=== PATIENT | male | born 1975 | race Two or more races ===

== ENCOUNTER 2019-12-08 12:50 | Inpatient (IN) | payer MEDICAID, OTHER ==
[~2019-12-08] VITALS: Ht 160 cm; Wt 103.5 kg
[2019-12-08] MEDS ORDERED: ACETAMINOPHEN 500 MG TAB PO ONE (13:30)
[2019-12-08] MEDS ORDERED: cefTRIAXone 1GM/50ML D5W 50 ML IV ONE (13:30)
[2019-12-08] MEDS ORDERED: methylPREDNISolone SOD SUCC 125 MG/2 ML VL IV ONE (13:30)
[2019-12-08] MEDS ORDERED: ASCORBIC ACID 500 MG TAB PO ONE (13:30)
[2019-12-08] MEDS ORDERED: AZITHROMYCIN 500MG/ 250ML 250 ML IV ONE (13:30)
[2019-12-08] MEDS ORDERED: ZINC SULFATE 220mg CAP or TAB PO ONE (13:30)
[2019-12-08 14:22] LABS: Basophils # (auto) 0 10 ^3/uL (0-0.2); Eosinophils # (auto) 0 10 ^3/uL (0-0.8); Monocytes # (auto) 0.2 10 ^3/uL (0-1.3); Neutrophils # (auto) 3.8 10 ^3/uL (1.6-8.6); Nucleated Red Blood Cells % 0.4 %
[2019-12-08 14:24] LABS: Basophils % (auto) 0.1 % (0.0-2.0); Hematocrit 37.1 % (41.0-53.0); Hemoglobin 11.6 g/dL (13.5-17.5); Mean Corpuscular Hemoglobin 22.6 pg (28.0-32.0); Mean Corpuscular Hgb Conc. 31.2 g/dL (32.0-36.0); Mean Corpuscular Volume 72.4 fL (80.0-100.0); Monocytes % (auto) 3.2 % (0.0-12.0); Neutrophils % (auto) 76.7 % (37.0-80.0); Platelet Count (auto) 162 10^3/uL (140-450); Red Blood Cells 5.12 10^6/uL (4.5-5.90); Red Cell Distribution Width 18.6 % (11.8-14.3); White Blood Cell 4.9 10^3/uL (4.4-10.8)
[2019-12-08 14:54] LABS: Albumin 2.6 g/dL (3.4-5.0); Calcium 7.5 mg/dL (8.5-10.1); Potassium 4.5 mmol/L (3.5-5.1)
[2019-12-08 15:02] LABS: BUN/Creatinine Ratio 14.4; Bilirubin, Total 0.3 mg/dL (0.2-1.0); CRP High Sensitivity 8.68 mg/dL (< 0.3); Total Protein 6.6 g/dL (6.4-8.2)
[2019-12-08] MEDS ORDERED: IOHEXOL 350 MG/ML 100ML IJ ONE (15:09)
[2019-12-08] MEDS ORDERED: ENOXAPARIN SOD 100 MG/1 ML SYRINGE SC ONE (15:15)
[2019-12-08] MEDS ORDERED: MORPHINE SULF INJ 2 MG/ML SYRINGE 1ML IV PRN ×2 (15:30→16:15)
[2019-12-08] MEDS ORDERED: NITROGLYCERIN 0.4 MG SL TAB SL PRN (15:30)
[2019-12-08] MEDS ORDERED: diphenhdrAMINE HCL 50 MG/1 ML VL ONE (15:43)
[2019-12-08] MEDS ORDERED: IBUPROFEN 600 MG TAB PO ONE (15:45)
[2019-12-08] MEDS ORDERED: PROMETHAZINE HCL 25 MG/ML 1ML IV PRN (16:15)
[2019-12-08] MEDS ORDERED: ACETAMINOPHEN 500 MG TAB PO PRN (16:15)
[2019-12-08] MEDS ORDERED: TEMAZEPAM 15 MG CAP PO PRN (16:15)
[2019-12-08] MEDS ORDERED: SODIUM CHLORIDE 0.9% 1,000 ML IV SCH (16:15)
[2019-12-08] MEDS ORDERED: traMADol HCL 50 MG TAB PO PRN (16:15)
[2019-12-08] MEDS ORDERED: DexAMETHasone INJECTION 10 MG in D5W 5% 50 ML IV ONE (16:15)
[2019-12-08] MEDS ORDERED: diphenhdrAMINE HCL 50 MG/1 ML VL IV ONE (16:15)
[2019-12-08 20:20] VITALS: BP 127/68
[2019-12-08 20:57] VITALS: BP 136/85
[2019-12-08] MEDS: ALBUTEROL SULF HFA 90MCG INH 200DOSE IN SCH (21:56)
[2019-12-08] MEDS: BUDESONIDE (INHALATION) 180 MCG IH IN SCH (21:56)
[2019-12-08 22:00] VITALS: BP 127/68
[2019-12-09] MEDS: CLINDAMYCIN 600MG IV 50 ML IV SCH ×3 (00:05→13:33)
[2019-12-09 05:00] VITALS: BP 145/76
[2019-12-09] MEDS: BUDESONIDE (INHALATION) 180 MCG IH IN SCH ×2 (07:02→22:11)
[2019-12-09] MEDS: ALBUTEROL SULF HFA 90MCG INH 200DOSE IN SCH ×3 (07:02→22:11)
[2019-12-09 08:00] VITALS: BP 106/69
[2019-12-09 09:00] VITALS: BP 106/69
[2019-12-09] MEDS: ASCORBIC ACID 1,000 MG TAB PO SCH (10:07)
[2019-12-09] MEDS: DexAMETHasone SOD PHOS 10MG/1ML VIAL INJ IV SCH (10:07)
[2019-12-09] MEDS: ZINC SULFATE 220mg CAP or TAB PO SCH (10:07)
[2019-12-09] MEDS: levoFLOXacin 500MG 100 ML IV SCH (10:07)
[2019-12-09] MEDS: CHOLECALCIFEROL (VITD3) 2,000 UNIT CAP PO SCH (10:08)
[2019-12-09] MEDS: ENOXAPARIN SOD 40 MG/0.4 ML SYRINGE SC SCH (10:08)
[2019-12-09 11:36] LABS: Basophils # (auto) 0 10 ^3/uL (0-0.2); Eosinophils # (auto) 0 10 ^3/uL (0-0.8); Hemoglobin 12.4 g/dL (13.5-17.5); Lymphocytes # (auto) 0.5 10 ^3/uL (0.4-5.4)
[2019-12-09 11:38] LABS: Basophils % (auto) 0.1 % (0.0-2.0); Hematocrit 40.5 % (41.0-53.0); Lymphocytes % (auto) 5.8 % (10.0-50.0); Mean Corpuscular Hemoglobin 22.7 pg (28.0-32.0); Mean Corpuscular Hgb Conc. 30.5 g/dL (32.0-36.0); Mean Corpuscular Volume 74.3 fL (80.0-100.0); Monocytes # (auto) 0.2 10 ^3/uL (0-1.3); Monocytes % (auto) 1.9 % (0.0-12.0); Neutrophils # (auto) 7.6 10 ^3/uL (1.6-8.6); Neutrophils % (auto) 92.2 % (37.0-80.0); Nucleated Red Blood Cells % 0.3 %; Platelet Count (auto) 176 10^3/uL (140-450); Red Blood Cells 5.45 10^6/uL (4.5-5.90); Red Cell Distribution Width 19.6 % (11.8-14.3); White Blood Cell 8.2 10^3/uL (4.4-10.8)
[2019-12-09 11:53] LABS: Albumin 2.5 g/dL (3.4-5.0); Calcium 7.7 mg/dL (8.5-10.1); Potassium 5.2 mmol/L (3.5-5.1)
[2019-12-09 11:58] LABS: BUN/Creatinine Ratio 22.6; Bilirubin, Total 0.3 mg/dL (0.2-1.0); Total Protein 6.9 g/dL (6.4-8.2)
[2019-12-09 13:00] VITALS: BP 107/80
[2019-12-09 17:00] VITALS: BP 128/80
[2019-12-09] MEDS ORDERED: REMDESIVIR 200 MG in NS 210ml LOADING DOSE ADULT IV ONE ×4 (17:00)
[2019-12-09 22:00] VITALS: BP 119/68
[2019-12-10] VITALS (7 sets, daily range): BP systolic 121–134; BP diastolic 71–84
[2019-12-10] MEDS: ALBUTEROL SULF HFA 90MCG INH 200DOSE IN SCH ×3 (07:32→22:27)
[2019-12-10] MEDS: BUDESONIDE (INHALATION) 180 MCG IH IN SCH ×2 (07:32→22:27)
[2019-12-10 08:54] LABS: Basophils # (auto) 0 10 ^3/uL (0-0.2); Basophils % (auto) 0.1 % (0.0-2.0); Eosinophils # (auto) 0 10 ^3/uL (0-0.8); Hemoglobin 11.2 g/dL (13.5-17.5)
[2019-12-10 08:56] LABS: Hematocrit 35.5 % (41.0-53.0); Lymphocytes # (auto) 0.5 10 ^3/uL (0.4-5.4); Lymphocytes % (auto) 6.5 % (10.0-50.0); Mean Corpuscular Hemoglobin 22.9 pg (28.0-32.0); Mean Corpuscular Hgb Conc. 31.4 g/dL (32.0-36.0); Mean Corpuscular Volume 72.8 fL (80.0-100.0); Monocytes # (auto) 0.1 10 ^3/uL (0-1.3); Monocytes % (auto) 1.7 % (0.0-12.0); Neutrophils # (auto) 7.7 10 ^3/uL (1.6-8.6); Neutrophils % (auto) 91.7 % (37.0-80.0); Nucleated Red Blood Cells % 0.3 %; Platelet Count (auto) 154 10^3/uL (140-450); Red Blood Cells 4.87 10^6/uL (4.5-5.90); Red Cell Distribution Width 18.9 % (11.8-14.3); White Blood Cell 8.4 10^3/uL (4.4-10.8)
[2019-12-10 09:10] LABS: BUN/Creatinine Ratio 25.6; Calcium 7.8 mg/dL (8.5-10.1); Potassium 4.6 mmol/L (3.5-5.1)
[2019-12-10] MEDS: DexAMETHasone SOD PHOS 10MG/1ML VIAL INJ IV SCH (10:41)
[2019-12-10] MEDS: CHOLECALCIFEROL (VITD3) 2,000 UNIT CAP PO SCH (10:42)
[2019-12-10] MEDS: ZINC SULFATE 220mg CAP or TAB PO SCH (10:42)
[2019-12-10] MEDS: levoFLOXacin 500MG 100 ML IV SCH (10:42)
[2019-12-10] MEDS: ASCORBIC ACID 1,000 MG TAB PO SCH (10:42)
[2019-12-10] MEDS: ENOXAPARIN SOD 40 MG/0.4 ML SYRINGE SC SCH (10:42)
[2019-12-10] MEDS ORDERED: REMDESIVIR 100mg in NS 230ml DAILYx4DAYS (NO VENT) IV SCH (17:00)
[2019-12-10] MEDS: REMDESIVIR 100mg in NS 230ml DAILYx4DAYS (NO VENT) IV SCH (17:18)
[2019-12-10] MEDS: ENOXAPARIN SOD 100 MG/1 ML SYRINGE SC SCH (21:06)
[2019-12-11 05:00] VITALS: BP 120/63
[2019-12-11] MEDS: BUDESONIDE (INHALATION) 180 MCG IH IN SCH (06:51)
[2019-12-11] MEDS: ALBUTEROL SULF HFA 90MCG INH 200DOSE IN SCH ×2 (06:51→14:24)
[2019-12-11 07:40] LABS: Potassium 4.6 mmol/L (3.5-5.1)
[2019-12-11 08:00] VITALS: BP 132/84
[2019-12-11 08:02] LABS: Albumin 2.5 g/dL (3.4-5.0); BUN/Creatinine Ratio 28.1; Bilirubin, Total 0.4 mg/dL (0.2-1.0); Calcium 7.8 mg/dL (8.5-10.1); Total Protein 6.5 g/dL (6.4-8.2)
[2019-12-11] MEDS: ENOXAPARIN SOD 100 MG/1 ML SYRINGE SC SCH ×2 (10:08→21:32)
[2019-12-11] MEDS: DexAMETHasone SOD PHOS 10MG/1ML VIAL INJ IV SCH (10:08)
[2019-12-11] MEDS: ZINC SULFATE 220mg CAP or TAB PO SCH (10:08)
[2019-12-11] MEDS: ASCORBIC ACID 1,000 MG TAB PO SCH (10:08)
[2019-12-11] MEDS: CHOLECALCIFEROL (VITD3) 2,000 UNIT CAP PO SCH (10:08)
[2019-12-11] MEDS: levoFLOXacin 500MG 100 ML IV SCH (10:08)
[2019-12-11 12:00] VITALS: BP 126/84
[2019-12-11 17:00] VITALS: BP 122/76
[2019-12-11] MEDS: REMDESIVIR 100mg in NS 230ml DAILYx4DAYS (NO VENT) IV SCH (17:20)
[2019-12-11 21:34] VITALS: BP 122/76
[2019-12-11 21:35] VITALS: BP 130/87
[2019-12-12 05:03] VITALS: BP 138/90
[2019-12-12] MEDS: ALBUTEROL SULF HFA 90MCG INH 200DOSE IN SCH ×3 (06:02→22:40)
[2019-12-12 08:00] VITALS: BP 130/74
[2019-12-12 08:11] LABS: Basophils # (auto) 0 10 ^3/uL (0-0.2); Basophils % (auto) 0.1 % (0.0-2.0); Eosinophils # (auto) 0 10 ^3/uL (0-0.8); Hemoglobin 11.3 g/dL (13.5-17.5); Lymphocytes # (auto) 0.6 10 ^3/uL (0.4-5.4)
[2019-12-12 08:14] LABS: Lymphocytes % (auto) 9.6 % (10.0-50.0); Mean Corpuscular Hemoglobin 22.3 pg (28.0-32.0); Mean Corpuscular Hgb Conc. 30.5 g/dL (32.0-36.0); Mean Corpuscular Volume 73.2 fL (80.0-100.0); Monocytes # (auto) 0.3 10 ^3/uL (0-1.3); Monocytes % (auto) 3.8 % (0.0-12.0); Neutrophils # (auto) 5.8 10 ^3/uL (1.6-8.6); Neutrophils % (auto) 86.5 % (37.0-80.0); Nucleated Red Blood Cells % 0.3 %; Platelet Count (auto) 190 10^3/uL (140-450); Red Blood Cells 5.05 10^6/uL (4.5-5.90); Red Cell Distribution Width 18.6 % (11.8-14.3); White Blood Cell 6.7 10^3/uL (4.4-10.8)
[2019-12-12 08:39] LABS: Potassium 4.4 mmol/L (3.5-5.1)
[2019-12-12 08:48] LABS: Albumin 2.4 g/dL (3.4-5.0); BUN/Creatinine Ratio 32.2; Bilirubin, Total 0.6 mg/dL (0.2-1.0); Total Protein 6.2 g/dL (6.4-8.2)
[2019-12-12] MEDS: BUDESONIDE (INHALATION) 180 MCG IH IN SCH ×2 (09:05→22:40)
[2019-12-12] MEDS: levoFLOXacin 500MG 100 ML IV SCH (10:05)
[2019-12-12] MEDS: ZINC SULFATE 220mg CAP or TAB PO SCH (10:05)
[2019-12-12] MEDS: ASCORBIC ACID 1,000 MG TAB PO SCH (10:05)
[2019-12-12] MEDS: DexAMETHasone SOD PHOS 10MG/1ML VIAL INJ IV SCH (10:05)
[2019-12-12] MEDS: ENOXAPARIN SOD 100 MG/1 ML SYRINGE SC SCH ×2 (10:06→22:02)
[2019-12-12] MEDS: CHOLECALCIFEROL (VITD3) 2,000 UNIT CAP PO SCH (10:06)
[2019-12-12 12:00] VITALS: BP 138/90
[2019-12-12 16:00] VITALS: BP 138/85
[2019-12-12] MEDS: REMDESIVIR 100mg in NS 230ml DAILYx4DAYS (NO VENT) IV SCH (17:00)
[2019-12-12 22:00] VITALS: BP 132/62
[2019-12-13] VITALS (9 sets, daily range): BP systolic 124–146; BP diastolic 73–95
[2019-12-13] MEDS: ALBUTEROL SULF HFA 90MCG INH 200DOSE IN SCH ×3 (06:52→21:16)
[2019-12-13] MEDS: BUDESONIDE (INHALATION) 180 MCG IH IN SCH ×2 (06:52→21:16)
[2019-12-13 07:53] LABS: Basophils # (auto) 0 10 ^3/uL (0-0.2); Eosinophils # (auto) 0 10 ^3/uL (0-0.8); Eosinophils % (auto) 0.2 % (0.0-7.0); Hemoglobin 11.7 g/dL (13.5-17.5); Lymphocytes # (auto) 0.8 10 ^3/uL (0.4-5.4); Monocytes # (auto) 0.4 10 ^3/uL (0-1.3); Monocytes % (auto) 5.7 % (0.0-12.0); Neutrophils # (auto) 5.7 10 ^3/uL (1.6-8.6); Neutrophils % (auto) 82.4 % (37.0-80.0); Nucleated Red Blood Cells % 0.1 %; Red Cell Distribution Width 18.7 % (11.8-14.3); White Blood Cell 6.9 10^3/uL (4.4-10.8)
[2019-12-13 07:55] LABS: Lymphocytes % (auto) 11.7 % (10.0-50.0); Mean Corpuscular Hemoglobin 22.2 pg (28.0-32.0); Mean Corpuscular Hgb Conc. 30.7 g/dL (32.0-36.0); Mean Corpuscular Volume 72.5 fL (80.0-100.0); Platelet Count (auto) 233 10^3/uL (140-450); Red Blood Cells 5.25 10^6/uL (4.5-5.90)
[2019-12-13 08:12] LABS: Calcium 8.3 mg/dL (8.5-10.1); Potassium 4.5 mmol/L (3.5-5.1)
[2019-12-13 08:13] LABS: BUN/Creatinine Ratio 28.2
[2019-12-13] MEDS: ZINC SULFATE 220mg CAP or TAB PO SCH (09:06)
[2019-12-13] MEDS: levoFLOXacin 500MG 100 ML IV SCH (09:06)
[2019-12-13] MEDS: DexAMETHasone SOD PHOS 10MG/1ML VIAL INJ IV SCH (09:06)
[2019-12-13] MEDS: ENOXAPARIN SOD 100 MG/1 ML SYRINGE SC SCH (09:07)
[2019-12-13] MEDS: CHOLECALCIFEROL (VITD3) 2,000 UNIT CAP PO SCH (09:07)
[2019-12-13] MEDS: ASCORBIC ACID 1,000 MG TAB PO SCH (09:07)
[2019-12-13] MEDS: REMDESIVIR 100mg in NS 230ml DAILYx4DAYS (NO VENT) IV SCH (17:16)
[2019-12-14 05:00] VITALS: BP 137/68
[2019-12-14 06:09] LABS: Basophils # (auto) 0 10 ^3/uL (0-0.2); Basophils % (auto) 0.1 % (0.0-2.0); Eosinophils # (auto) 0.1 10 ^3/uL (0-0.8); Eosinophils % (auto) 1.1 % (0.0-7.0); Monocytes # (auto) 0.5 10 ^3/uL (0-1.3); Monocytes % (auto) 6.5 % (0.0-12.0); Neutrophils # (auto) 5.4 10 ^3/uL (1.6-8.6); White Blood Cell 7.1 10^3/uL (4.4-10.8)
[2019-12-14 06:11] LABS: Hematocrit 40.2 % (41.0-53.0); Hemoglobin 12.4 g/dL (13.5-17.5); Lymphocytes # (auto) 1.1 10 ^3/uL (0.4-5.4); Lymphocytes % (auto) 15.7 % (10.0-50.0); Mean Corpuscular Hemoglobin 22.4 pg (28.0-32.0); Mean Corpuscular Hgb Conc. 30.7 g/dL (32.0-36.0); Neutrophils % (auto) 76.6 % (37.0-80.0); Nucleated Red Blood Cells % 0.1 %; Platelet Count (auto) 271 10^3/uL (140-450); Red Blood Cells 5.51 10^6/uL (4.5-5.90); Red Cell Distribution Width 18.9 % (11.8-14.3)
[2019-12-14 06:26] LABS: BUN/Creatinine Ratio 21.2; Calcium 7.9 mg/dL (8.5-10.1); Potassium 4.7 mmol/L (3.5-5.1)
[2019-12-14] MEDS: BUDESONIDE (INHALATION) 180 MCG IH IN SCH ×2 (06:53→21:17)
[2019-12-14] MEDS: ALBUTEROL SULF HFA 90MCG INH 200DOSE IN SCH ×3 (06:53→21:16)
[2019-12-14 08:33] VITALS: BP 133/86
[2019-12-14] MEDS: ZINC SULFATE 220mg CAP or TAB PO SCH (10:33)
[2019-12-14] MEDS: levoFLOXacin 500MG 100 ML IV SCH (10:33)
[2019-12-14] MEDS: DexAMETHasone SOD PHOS 10MG/1ML VIAL INJ IV SCH (10:33)
[2019-12-14] MEDS: CHOLECALCIFEROL (VITD3) 2,000 UNIT CAP PO SCH (10:34)
[2019-12-14] MEDS: ASCORBIC ACID 1,000 MG TAB PO SCH (10:34)
[2019-12-14] MEDS: ENOXAPARIN SOD 40 MG/0.4 ML SYRINGE SC SCH (10:34)
[2019-12-14 11:58] VITALS: BP 135/82
[2019-12-14 17:00] VITALS: BP 140/90
[2019-12-14 22:00] VITALS: BP 132/73
[2019-12-15 05:00] VITALS: BP 119/60
[2019-12-15] MEDS: BUDESONIDE (INHALATION) 180 MCG IH IN SCH ×2 (06:18→21:15)
[2019-12-15] MEDS: ALBUTEROL SULF HFA 90MCG INH 200DOSE IN SCH ×3 (06:18→21:15)
[2019-12-15 07:43] LABS: Basophils # (auto) 0 10 ^3/uL (0-0.2); Eosinophils # (auto) 0.1 10 ^3/uL (0-0.8); Neutrophils # (auto) 6.8 10 ^3/uL (1.6-8.6)
[2019-12-15 07:44] LABS: Basophils % (auto) 0.1 % (0.0-2.0); Eosinophils % (auto) 0.9 % (0.0-7.0); Hematocrit 41.8 % (41.0-53.0); Lymphocytes # (auto) 1.3 10 ^3/uL (0.4-5.4); Lymphocytes % (auto) 14.9 % (10.0-50.0); Mean Corpuscular Hemoglobin 22.7 pg (28.0-32.0); Mean Corpuscular Hgb Conc. 31.1 g/dL (32.0-36.0); Mean Corpuscular Volume 73.1 fL (80.0-100.0); Monocytes # (auto) 0.5 10 ^3/uL (0-1.3); Monocytes % (auto) 5.7 % (0.0-12.0); Neutrophils % (auto) 78.4 % (37.0-80.0); Nucleated Red Blood Cells % 0.1 %; Platelet Count (auto) 265 10^3/uL (140-450); Red Blood Cells 5.71 10^6/uL (4.5-5.90); Red Cell Distribution Width 19.1 % (11.8-14.3); White Blood Cell 8.7 10^3/uL (4.4-10.8)
[2019-12-15 08:00] VITALS: BP 130/79
[2019-12-15 08:02] LABS: Potassium 4.3 mmol/L (3.5-5.1)
[2019-12-15 08:06] LABS: BUN/Creatinine Ratio 24.4; Calcium 8.2 mg/dL (8.5-10.1)
[2019-12-15] MEDS: ZINC SULFATE 220mg CAP or TAB PO SCH (10:18)
[2019-12-15] MEDS: ENOXAPARIN SOD 40 MG/0.4 ML SYRINGE SC SCH (10:18)
[2019-12-15] MEDS: CHOLECALCIFEROL (VITD3) 2,000 UNIT CAP PO SCH (10:18)
[2019-12-15] MEDS: ASCORBIC ACID 1,000 MG TAB PO SCH (10:18)
[2019-12-15] MEDS: levoFLOXacin 500MG 100 ML IV SCH (10:18)
[2019-12-15] MEDS: DexAMETHasone SOD PHOS 10MG/1ML VIAL INJ IV SCH (10:19)
[2019-12-15 12:00] VITALS: BP 138/83
[2019-12-15 15:55] VITALS: BP 138/83
[2019-12-15 16:30] VITALS: BP 144/89
[2019-12-15 21:41] VITALS: BP 120/71
[2019-12-16 05:00] VITALS: BP 109/71
[2019-12-16] MEDS: ALBUTEROL SULF HFA 90MCG INH 200DOSE IN SCH ×2 (06:25→14:08)
[2019-12-16] MEDS: BUDESONIDE (INHALATION) 180 MCG IH IN SCH (06:25)
[2019-12-16 07:43] LABS: Basophils # (auto) 0 10 ^3/uL (0-0.2); Monocytes # (auto) 0.5 10 ^3/uL (0-1.3)
[2019-12-16 07:45] LABS: Basophils % (auto) 0.1 % (0.0-2.0); Eosinophils # (auto) 0 10 ^3/uL (0-0.8); Eosinophils % (auto) 0.5 % (0.0-7.0); Hematocrit 39.5 % (41.0-53.0); Hemoglobin 12.7 g/dL (13.5-17.5); Lymphocytes # (auto) 1.6 10 ^3/uL (0.4-5.4); Lymphocytes % (auto) 17.4 % (10.0-50.0); Mean Corpuscular Hemoglobin 23.3 pg (28.0-32.0); Mean Corpuscular Hgb Conc. 32.1 g/dL (32.0-36.0); Mean Corpuscular Volume 72.5 fL (80.0-100.0); Platelet Count (auto) 288 10^3/uL (140-450); Red Blood Cells 5.45 10^6/uL (4.5-5.90); Red Cell Distribution Width 18.7 % (11.8-14.3); White Blood Cell 9.2 10^3/uL (4.4-10.8)
[2019-12-16 07:49] LABS: BUN/Creatinine Ratio 25.6; Calcium 8.4 mg/dL (8.5-10.1); Potassium 4.4 mmol/L (3.5-5.1)
[2019-12-16] MEDS: ZINC SULFATE 220mg CAP or TAB PO SCH (09:47)
[2019-12-16] MEDS: DexAMETHasone SOD PHOS 10MG/1ML VIAL INJ IV SCH (09:47)
[2019-12-16] MEDS: CHOLECALCIFEROL (VITD3) 2,000 UNIT CAP PO SCH (09:48)
[2019-12-16] MEDS: ASCORBIC ACID 1,000 MG TAB PO SCH (09:48)
[2019-12-16] MEDS: levoFLOXacin 500MG 100 ML IV SCH (09:48)
[2019-12-16] MEDS: ENOXAPARIN SOD 40 MG/0.4 ML SYRINGE SC SCH (09:48)
[2019-12-16 12:00] VITALS: BP 117/83
== END 2019-12-16 16:20 | disposition home or self-care (01) | DRG 137 ==
LOC: ER 12:50 → TELE-EAST 12:51
PROVIDERS: ADMIT Internal Medicine; ATTEND Internal Medicine Pulmonary Disease
PROC: XW033E5 Introduction of Remdesivir Anti-infective into Peripheral Vein, Percutaneous Approach, New Technology Group 5 (ICD-10-PCS; principal; 2019-12-09)
PROC: XW033E5 Introduction of Remdesivir Anti-infective into Peripheral Vein, Percutaneous Approach, New Technology Group 5 (ICD-10-PCS; 2019-12-13)
PROC: 5A09357 Assistance with Respiratory Ventilation, Less than 24 Consecutive Hours, Continuous Positive Airway Pressure (ICD-10-PCS; 2019-12-13)
PROC: 5A09357 Assistance with Respiratory Ventilation, Less than 24 Consecutive Hours, Continuous Positive Airway Pressure (ICD-10-PCS; 2019-12-14)
PROC: 5A09357 Assistance with Respiratory Ventilation, Less than 24 Consecutive Hours, Continuous Positive Airway Pressure (ICD-10-PCS; 2019-12-15)
DX: U07.1 COVID-19 (principal); J12.89 Other viral pneumonia; J96.01 Acute respiratory failure with hypoxia; E66.01 Morbid (severe) obesity due to excess calories; K76.0 Fatty (change of) liver, not elsewhere classified; G47.33 Obstructive sleep apnea (adult) (pediatric); Z91.041 Radiographic dye allergy status; Z79.899 Other long term (current) drug therapy; Z83.3 Family history of diabetes mellitus; Z82.49 Family history of ischemic heart disease and other diseases of the circulatory system; Z68.41 Body mass index [BMI] 40.0-44.9, adult; J84.89 Other specified interstitial pulmonary diseases
CPT/HCPCS: 36415; 36600; 71045; 71275; 80048; 80053; 82728; 82805; 82962; 83605; 84484; 85025; 85379; 86141; 87040; 87426; 93005; 93970; 94640; 94660; 99291; G0378; J0696; J1100; J1956; J3490; J7060